=== PATIENT | female | born 1970 | race Caucasian/White ===

== ENCOUNTER → 2020-01-07 11:30 | Outpatient (BNVA) | payer MEDICAID, SELFPAY | PROVIDERS: Visit Provider Nurse Practitioner | DX: R50.9 Fever, unspecified (principal); B34.9 Viral infection, unspecified; J44.9 Chronic obstructive pulmonary disease, unspecified; Z20.828 Contact with and (suspected) exposure to other viral communicable diseases | CPT/HCPCS: 87635 ==

== ENCOUNTER → 2020-10-13 08:50 | Outpatient (BNVA) | payer MEDICAID, SELFPAY | PROVIDERS: Visit Provider Psychiatry & Neurology Psychiatry | DX: F43.12 Post-traumatic stress disorder, chronic (principal); F33.2 Major depressive disorder, recurrent severe without psychotic features; F41.1 Generalized anxiety disorder; F10.21 Alcohol dependence, in remission; F12.20 Cannabis dependence, uncomplicated; F17.200 Nicotine dependence, unspecified, uncomplicated | CPT/HCPCS: 99204 ==

== ENCOUNTER 2021-01-31 09:53 | Outpatient (CLI) | payer MEDICAID, SELFPAY ==
--- NOTE | 2021-01-31 09:56 | NM_ITS ---
WS: [id number] NUCLEAR MEDICINE HIDA SCAN CLINICAL INFORMATION: ABDOMINAL BLOATING TECHNIQUE: Following intravenous administration of 7.8 mCi of technetium 99m mebrofenin, images of th e abdomen were obtained over the course of 60 minutes. Next, gallbladder ejection fraction was determ ined by obtaining preprandial and one-hour postprandial images of the gallbladder following oral celestina stion of Ensure. COMPARISON: None. FINDINGS: Normal hepatic uptake at 5 minutes. Common bile duct visualized by 10 to 15 minutes. Normal common bi le duct and small bowel activity. Gallbladder is visualized by 20 minutes. No evidence of acute cholecystitis. Gallbladder ejection fra ction 77% within normal limits. No evidence of chronic cholecystitis. NM/NM hepatobiliary w phar* [id number] IMPRESSION: 1. No evidence of acute or chronic cholecystitis. 2. Normal gallbladder ejection fraction 77%.
== END 2021-01-31 09:54 | disposition home or self-care (01) ==
LOC: NM 09:54
PROVIDERS: PCP Family Medicine; Visit Provider Family Medicine
DX: R14.0 Abdominal distension (gaseous) (principal); K83.8 Other specified diseases of biliary tract
CPT/HCPCS: 78227; A9537

== ENCOUNTER → 2021-12-14 11:47 | Outpatient (BNVA) | payer MEDICAID, SELFPAY | PROVIDERS: PCP Family Medicine; Visit Provider Family Medicine | DX: M25.512 Pain in left shoulder (principal) | CPT/HCPCS: 73030 ==

== ENCOUNTER → 2023-06-07 15:58 | Outpatient (BNVA) | payer MEDICAID, SELFPAY | PROVIDERS: PCP Family Medicine; Visit Provider Nurse Practitioner | DX: R05.9 Cough, unspecified (principal); M79.642 Pain in left hand | CPT/HCPCS: 87426 ==

== ENCOUNTER 2024-05-25 15:38 | Emergency (ER) | payer MEDICAID, SELFPAY ==
[2024-05-25] VITALS (11 sets, daily range): BP systolic 144–193; BP diastolic 94–152; PULSE 59–84; RESP 15–20; TEMP 36.7; O2SAT 94–98; BMI 30.9
--- NOTE | 2024-05-25 15:42 | XRR_ITS ---
PROCEDURE INFORMATION: Exam: XR Chest Exam date and time: 05/25/2024 3:47 PM Age: 53 years old Clinical indication: Pain; Chest pressure; Additional info: Chest pain TECHNIQUE: Imaging protocol: Radiologic exam of the chest. Views: 1 view. COMPARISON: CR XR chest 1V [id number] 06/03/2017 10:18 PM FINDINGS: Lungs: Lungs are clear bilaterally. Pleural spaces: No pleural effusion. No pneumothorax. Heart/Mediastinum: The cardiac silhouette and mediastinal contours are unremarkable. Bones/joints: . Patient has had a previous right humeral fracture repair. There has been interval removal of the majority of the surgical hardware with a residual partial screw in the right humeral head. Bones are diffusely osteopenic. Degenerative changes in the spine and shoulders. XR/XR chest 1V portable [id number] IMPRESSION: 1. No acute cardiopulmonary process. 2. Patient has had a previous right humeral fracture repair. There has been interval removal of the majority of the surgical hardware with a residual partial screw in the right humeral head. 3. Incidental/nonacute findings are listed in the report.
--- NOTE | 2024-05-25 15:44 | ECG_ITS ---
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 Measurements Intervals Howard Rate: 67 P: 49 WI: 136 QRS: 54 QRSD: 88 T: 61 QT: 387 QTc: 410 Interpretive Statements SINUS RHYTHM WITH MARKED SINUS ARRHYTHMIA Compared to ECG 06/03/2017 22:32:42 No significant changes Electronically Signed On 05-25-2024 20:38:03 CDT by Obdulia Muhammad M.D. [id number]
--- NOTE | 2024-05-25 15:53 | ED_ITS ---
HPI - SOB/Dyspnea 2 General: Chief Complaint: Shortness of Breath/Dyspnea Stated Complaint: chest pain; SOB Time Seen by Provider: 05/25/24 15:39 History of Present Illness: HPI Narrative: 53-year-old female with a history of tob acco dependence, COPD, fatty history of alcohol abuse who presents to the emergency room with central chest and epigastric pain. She has had some nausea and vomiting. Says it hurts to breathe. This is on both sides of her chest. Symptoms are worse today. She is supposed to see her doctor this week at some point but could not make it. She says symptoms have been off and on for about a month now. She has had a cough productive of sputum. No fevers. Altered mental status. Related Data Home Medications Medication Instructions Recorded Confirmed buspirone 5 mg tablet 5 mg PO BID 09/03/20 12/14/21 cetirizine 10 mg capsule (Zyrtec) 10 mg PO DAILY 09/03/20 12/14/21 hydrocodone 5 mg-acetaminophen 325 1 tab PO BID PRN 09/03/20 12/14/21 mg tablet (Lorcet (hydrocodone)) albuterol sulfate 2.5 mg/3 mL 2.5 mg inhalation Q6H 12/14/21 12/14/21 (0.083 %) solution for nebulization omeprazole 40 mg capsule,delayed ea PO 12/14/21 12/14/21 release ibuprofen 800 mg tablet 800 mg PO BID 06/07/23 06/07/23 tiotropium bromide 18 mcg capsule 1 cap inhalation DAILY 06/07/23 06/07/23 with inhalation device (Spiriva with HandiHaler) Previous Rx's Medication Instructions Recorded albuterol sulfate 90 mcg/actuation 2 puff inhalation Q6H PRN 06/07/23 aerosol inhaler shortness of breath or wheezing #8.5 grams doxycycline hyclate 100 mg capsule 100 mg PO BID #14 caps 06/07/23 fluconazole 150 mg tablet 150 mg PO Q3D 2 doses #2 tabs 06/07/23 (Diflucan) dexamethasone 6 mg tablet 6 mg PO DAILY 5 days #5 tabs 05/25/24 doxycycline hyclate 100 mg capsule 100 mg PO BID 7 days #14 caps 05/25/24 hydrocodone 5 mg-acetaminophen 325 1 tab PO Q8H PRN pain #14 tabs 25/24 mg tablet Allergies Allergy/AdvReac Type Severity Reaction Status Date / Time baclofen Allergy Severe gives her Verified 06/07/23 15:46 nightmares levofloxacin [From Levaquin] Allergy Severe Anaphylaxis Verified 06/07/23 15:46 amoxicillin Allergy unknown Verified 06/07/23 15:46 azithromycin [From Zithromax] Allergy unknown Verified 06/07/23 15:46 cephalexin [From Keflex] Allergy unknown Verified 06/07/23 15:46 ciprofloxacin [From Cipro] Allergy unknown Verified 06/07/23 15:46 erythromycin base Allergy unknown Verified 06/07/23 15:46 Penicillins Allergy unknown Verified 06/07/23 15:46 prednisone Allergy ADR-Itching Unverified 06/07/23 15:46 Sulfa (Sulfonamide Allergy unknown Verified 06/07/23 15:46 Antibiotics) Review of Systems 2 Narrative: Constitutional symptoms: Negative except as documented in HPI. Skin symptoms: Negative except as documented in HPI. Eye symptoms: Negative except as documented in HPI. ENMT symptoms: Negative except as documented in HPI. Respiratory symptoms: Negative except as documented in HPI. Cardiovascular symptoms: Negative except as documented in HPI. Gastrointestinal symptoms: Negative except as documented in HPI. Genitourinary symptoms: Negative except as documented in HPI. Musculoskeletal symptoms: Negative except as documented in HPI. Neurologic symptoms: Negative except as documented in HPI. Psychiatric symptoms: Negative except as documented in HPI. Endocrine symptoms: Negative except as documented in HPI. PFSH ED 2 PFSH: Medical History Alcohol abuse COPD (chronic obstructive pulmonary disease) Depression Fibromyalgia Generalized anxiety disorder GERD (gastroesophageal reflux disease) Surgical History Status post hysterectomy Social History Smoking and tobacco/nicotine status: current every day tobacco/nicotine user cigarettes Packs smoked per day: 1.5 Years cigarettes smoked: 37 Quit status (tobacco/nicotine): has tried quititng Number of times tried to quit tobacco: 10 Second hand smoke exposure: No Alcohol intake: current Alcohol intake frequency: 3 or more drinks per day Substance/Drug Use: never Current gender identity: Female Physical Exam 2 Narrative: EXAM NARRATIVE: General: Alert, no acute distress. Skin: Warm, dry. Head: Normocephalic, atraumatic. Neck: Supple, trachea midline. Eye: Extraocular movements are intact. Ears, nose, mouth and throat: mucosa moist. Cardiovascular: Regular, Normal peripheral perfusion. Respiratory: Lungs are clear to auscultation, respirations are non-labored, breath sounds are equal, Symmetrical chest wall expansion. Gastrointestinal: Soft, Nontender, Non distended Musculoskeletal: Normal ROM, no deformity. Neurological: Alert and oriented, No focal neurological deficit observed. Psychiatric: Cooperative, appropriate mood & affect. Course 2 Vital Signs: Vital signs: Vital Signs Temperature 98.1 F 05/25/24 15:39 Pulse Rate 81 05/25/24 18:12 Respiratory Rate 16 05/25/24 18:06 Blood Pressure 162/94 05/25/24 16:30 Pulse Oximetry 98 05/25/24 18:06 Oxygen Delivery Me thod Room Air 05/25/24 18:06 MDM - SOB/Dyspnea Medical Decision Making Differential diagnosis for patient with shortness of breath includes but is not limited to and based on the above HPI, review of systems and physical exam: Pneumonia. Bronchitis. Asthma or COPD with acute exacerbation. Acute coronary syndrome / IA. Pulmonary embolism. Anxiety. Congestive heart failure. Viral infections including influenza and Covid-19. Atrial fibrillation. Anxiety. Pleural effusion. Pneumothorax. Workup: Lab work, chest X-ray and EKG ordered to evaluate, rule in and rule out above pathologies EKG: Time 1603. Rate 67. Normal sinus rhythm, No ST-T changes, no ectopy, normal MI & QRS intervals, This was reviewed and interpreted by myself the ER physician at 1605 Repeat EKG: Normal sinus rhythm, No ST-T changes, no ectopy, normal MI & QRS intervals, This was reviewed and interpreted by myself the ER physician at 1750 Lab Review: Laboratory results were reviewed and interpreted by myself the emergency room physician. No leukocytosis. Mild polycythemia at 17,000. Platelets normal at 241. BUN and creatinine are normal at 12 and 0.6. Lipase is minimally elevated at 95. Chest x-ray: No acute process. No infiltrate. No pneumothorax. This was reviewed and interpreted by myself the ER physician. CT of the chest abdomen pelvis with contrast: No PE. No cardiopulmonary process. Findings listed below which have discussed with gastroenterology and this needs followed up as an outpatient. She has chronic pancreatitis and probably has some pseudocysts but is relatively symptomatic and tolerating fluids today. Consultation. I spoke with Dr. Biswas at [facility] in [place]. He is computer help desk specialist. I discussed the findings. He agrees that if the patient is tolerating fluids and has minimized pain that this can be followed up as an outpatient. He recommends alcohol cessation. I reviewed the patient's medical record. Reexamination: Patient says she feels much better. No further abdominal pain. She is not requiring oxygen. No increased work of breathing. No altered mental status. No focal motor deficits. Assessment and plan: COPD with acute exacerbation Tobacco dependence Alcohol abuse Chronic pancreatitis Pancreatic pseudocyst ?Fluids and pain medications in the emergency room. Also IV Solu-Medrol, IV doxycycline and updrafts. - Discharged home - Discussed findings and plan with patient. Answered any questions. - All laboratory values were reviewed and interpreted personally by myself, the ER physician - All imaging was reviewed and interpreted personally by myself, the ER physician. - Evaluation and treatment of this problem were appropriate in the emergency setting Lab Data 05/25/24 15:50 05/25/24 15:50 Labs/Radiology: Radiology Impressions Chest X-Ray 05/25/24 15:42 IMPRESSION: 1. No acute cardiopulmonary process. 2. Patient has had a previous right humeral fracture repair. There has been interval removal of the majority of the surgical hardware with a residual partial screw in the right humeral head. 3. Incidental/nonacute findings are listed in the report. Chest/Abdomen/Pelvis CT 05/25/24 16:29 IMPRESSION: 1. No evidence for pulmonary embolism. 2. No acute cardiopulmonary process. 3. Incidental/nonacute findings are listed in the report. IMPRESSION: 1. Interval development on a curvilinear soft tissue density focus with mild associated inflammation between the pancreatic head and the duodenal bulb and 2nd portion of the duodenum. Findings raise suspicion for groove pancreatitis. The differential diagnosis also includes a primary pancreatic or duodenal mass. Further evaluation with MRI of the pancreas/MRCP or ERCP with endoscopic ultrasound is recommended. 2. Interval development of calcifications in the head of the pancreas, suspicious for sequela of chronic pancreatitis interval development of mild pancreatic ductal dilatation and biliary ductal dilatation. Subtle area of relative decreased density in the uncinate process below the area of calcification. While this also may be secondary to chronic pancreatitis, there is cutoff of the pancreatic and biliary ducts in the uncinate process of the pancreas in this area, it is uncertain whether this may be due to the calcification or secondary to an occult mass. No pancreatic atrophy. Again, further evaluation with MRI of the pancreas/MRCP or ERCP with endoscopic ultrasound is recommended. 3. Interval development of 2 cystic foci in the head of the pancreas, question if these may represent small pancreatic pseudocysts. 4. Bilateral nonobstructing renal stones. 5. Sigmoid diverticulosis. No evidence for diverticulitis. 6. Incidental/nonacute findings are listed in the report. ADDENDUM: 05/25/24 1809 ZEE Clark stated on 05/25/2024 at 6:07 PM CDT that a copy of the report was received and there were no questions. Abdomen Ultrasound 05/25/24 18:14 IMPRESSION: 1. Pancreas is partially visualized 1.7 x 1.3 x 1.4 cm cystic focus in the head of the pancreas that corresponds to the more superior cystic finding on the prior CT scan and may represent a pancreatic pseudocyst. The 2nd cystic focus noted on the prior CT is not visualized. 2. Visualized common bile duct is dilated measuring 1.1 cm. The distal common bile duct is not visualized. 3. Artifact from Doppler flow in the right kidney corresponding to the right kidney stones noted on the prior CT. Laboratory Results WBC 8.14 10^3/uL (3.29-11.43) 05/25/24 15:50 RBC 5.39 10^6/uL (3.85-5.65) 05/25/24 15:50 Hgb 17.10 g/dL (11.27-16.99) H 05/25/24 15:50 Hct 52.3 % (36-47) H 05/25/24 15:50 MCV 97.0 fl (85-98) 05/25/24 15:50 MCH 31.7 pg (27-33) 05/25/24 15:50 MCHC 32.7 g/dL (30-55) 05/25/24 15:50 RDW 15.3 % (12.1-15.1) H 05/25/24 15:50 Plt Count 241 10^3/cmm (157-399) 05/25/24 15:50 MPV 9.0 fL (7.4-10.4) 05/25/24 15:50 Neut % (Auto) 76.2 % 05/25/24 15:50 Lymph % (Auto) 14.0 % 05/25/24 15:50 [place] % (Auto) 8.0 % 05/25/24 15:50 Eos % (Auto) 0.9 % 05/25/24 15:50 Baso % (Auto) 0.5 % 05/25/24 15:50 Neut # (Auto) 6.21 10^3/uL (1.8-7.7) 05/25/24 15:50 Lymph # (Auto) 1.1 10^3/uL (0.8-4.8) 05/25/24 15:50 [place] # (Auto) 0.7 10^3/uL (0.2-0.9) 05/25/24 15:50 Eos # (Auto) 0.1 10^3/uL (0.0-0.8) 05/25/24 15:50 Baso # (Auto) 0.0 10^3/uL (0.0-0.1) 05/25/24 15:50 Nucleated RBC % (auto) 0 % 05/25/24 15:50 Nucleated RBCs # 0.0 /100WBC 05/25/24 15:50 Sodium 139 mmol/L (136-145) 05/25/24 15:50 Potassium 4.0 mmol/L (3.5-5.1) 05/25/24 15:50 Chloride 103 mmol/L (98-107) 05/25/24 15:50 Carbon Dioxide 23 mmol/L (22-29) 05/25/24 15:50 Anion Gap 17.0 (5-19) 05/25/24 15:50 BUN 12 mg/dL (6-20) 05/25/24 15:50 Creatinine 0.6 mg/dL (0.5-0.9) 05/25/24 15:50 GFR Calculation 104.6 mL/min (90-130) 05/25/24 15:50 Glucose 128 mg/dL (65-115) H 05/25/24 15:50 Calculated Osmolality 289 mOsm/kg (285-295) 05/25/24 15:50 Lactic Acid 0.8 mmol/L (0.5-2.2) 05/25/24 15:50 Calcium 9.5 mg/dL (8.5-10.5) 05/25/24 15:50 Total Bilirubin 0.8 mg/dL (0.15-1.2) 05/25/24 15:50 AST 19 U/L (0-32) 05/25/24 15:50 ALT 8 U/L (0-33) 05/25/24 15:50 Alkaline Phosphatase 103 U/L (35-105) 05/25/24 15:50 Troponin T Baseline < 6 ng/L (0-10) 05/25/24 15:50 Troponin T 120 Minute 6.00 ng/L (0-10) 05/25/24 17:58 Delta Troponin T 0.96403 ABS# (0-10) 05/25/24 17:58 C-Reactive Protein 3.0 mg/L (0.0-4.9) 05/25/24 15:50 Total Protein 7.0 g/dL (6.6-8.7) 05/25/24 15:50 Albumin 4.2 g/dL (3.5-5.2) 05/25/24 15:50 Globulin 2.8 g/dL (1.3-4.6) 05/25/24 15:50 Lipase 95 U/L (13-60) H 05/25/24 15:50 SARS-CoV-2 Ag (Rapid) negative (Negative) 05/25/24 16:44 All radiology interpretation(s) finalized by discharge Discharge Plan Discharge Patient Disposition: Home Clinical Impression: COPD with acute exacerbation, Tobacco dependence, Alcohol abuse, Chronic pancreatitis Condition: Stable Prescriptions: New doxycycline hyclate 100 mg capsule 100 mg PO BID 7 Days Qty: 14 0RF dexamethasone 6 mg tablet 6 mg PO DAILY 5 Days Qty: 5 0RF hydrocodone-acetaminophen 5-325 mg tablet 1 tab PO Q8H PRN (Reason: pain) Qty: 14 0RF Rx Instructions: Take 1/2 to 1 tab every 8 hours as needed for pain No Action buspirone 5 mg tablet 5 mg PO BID hydrocodone-acetaminophen [Lorcet (hydrocodone)] 5-325 mg tablet 1 tab PO BID PRN Zyrtec 10 mg capsule 10 mg PO DAILY albuterol sulfate 2.5 mg /3 mL (0.083 %) solution for nebulization 2.5 mg inhalation Q6H omeprazole 40 mg capsule,delayed release(DR/EC) PO ibuprofen 800 mg tablet 800 mg PO BID tiotropium bromide [Spiriva with HandiHaler] 18 mcg capsule, w/inhalation device 1 cap inhalation DAILY doxycycline hyclate 100 mg capsule 100 mg PO BID Qty: 14 0RF albuterol sulfate 90 mcg/actuation HFA aerosol inhaler 2 puff inhalation Q6H PRN (Reason: shortness of breath or wheezing) Qty: 8.5 0RF fluconazole [Diflucan] 150 mg tablet 150 mg PO Q3D Qty: 2 0RF Discharge Orders: Discharge ED (Routine); Ordered 05/25/24 Ordered By: Zee Turcios Referrals: Gallo Stauffer [Primary Care Provider] - Discharge Diet: Advance as tolerated Discharge Activity: Increase activity as tolerated Patient Instructions: COPD (Chronic Obstructive Pulmonary Disease) (ED) Activity Restrictions/Additional Instructions: You have abnormal findings on your CT they are concerned your bile duct and your pancreas. This needs follow-up with your primary doctor and likely a procedure called an MRCP and/or follow-up with gastroenterology. This needs to be done promptly. Discussed this with the appointment you have with your primary care this week. You must stop drinking alcohol For the next few days have a clear liquid diet and no solids this will help if you are having some mild pancreatitis type symptoms. Thank you for choosing [facility] for your healthcare needs today. Please realize this is an emergency room and that we are providing you with a medical screening exam and this may not be complete and all inclusive of all the testing and or work up that you may need to determine your ailment or severity of your illness. You have been screened and evaluated and felt safe for discharge. Health conditions do change or evolve sometimes and as such it is important that you follow up with your Primary Doctor to be re checked, 3-5 days is a general good time frame for follow up. 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
[2024-05-25 15:57] LABS: Basophils % 0.5 %; Eosinophils # 0.1 10^3/uL (0.0-0.8); Eosinophils % 0.9 %; Hematocrit 52.3 % (36-47); Lymphocytes # 1.1 10^3/uL (0.8-4.8); Mean Corpuscular HGB Conc 32.7 g/dL (30-55); Mean Corpuscular Hemoglobin 31.7 pg (27-33); Monocytes # 0.7 10^3/uL (0.2-0.9); Neutrophils # 6.21 10^3/uL (1.8-7.7); Neutrophils % 76.2 %; Nucleated Red Blood Cells % 0 %; Platelet Count 241 10^3/cmm (157-399); Red Blood Count 5.39 10^6/uL (3.85-5.65); Red Cell Distribution Width 15.3 % (12.1-15.1); White Blood Count 8.14 10^3/uL (3.29-11.43)
[2024-05-25 16:20] LABS: Troponin(5th) Baseline < 6 ng/L (0-10)
[2024-05-25 16:23] LABS: Alanine Aminotransferase 8 U/L (0-33); Albumin Level 4.2 g/dL (3.5-5.2); Alkaline Phosphatase 103 U/L (35-105); Aspartate Amino Transferase 19 U/L (0-32); Blood Urea Nitrogen 12 mg/dL (6-20); Calcium 9.5 mg/dL (8.5-10.5); Carbon Dioxide 23 mmol/L (22-29); Chloride 103 mmol/L (98-107); Globulin 2.8 g/dL (1.3-4.6); Glomerular Filtration Rate 104.6 mL/min (90-130); Glucose 128 mg/dL (65-115); Lipase 95 U/L (13-60); Osmolality Calculated 289 mOsm/kg (285-295); Sodium 139 mmol/L (136-145); Total Bilirubin 0.8 mg/dL (0.15-1.2)
[2024-05-25 16:24] LABS: Lactic Sepsis W/Reflex 0.8 mmol/L (0.5-2.2)
--- NOTE | 2024-05-25 16:29 | CTR_ITS ---
PROCEDURE INFORMATION: Exam: CT Chest With Contrast; Diagnostic Exam date and time: 05/25/2024 5:14 PM Age: 53 years old Clinical indication: Abdominal pain; Epigastric; Chest pressure; Additional info: Chest pain, epigastric pain TECHNIQUE: Imaging protocol: Diagnostic computed tomography of the chest with contrast. Sagittal and coronal reformatted images were created and reviewed. Radiation optimization: All CT scans at this facility use at least one of these dose optimization techniques: automated exposure control; mA and/or kV adjustment per patient size (includes targeted exams where dose is matched to clinical indication); or iterative reconstruction. Contrast material: OMNI 350; Contrast volume: 100 ml; Contrast route: INTRAVENOUS (IV); COMPARISON: CR (CHEST, ) 05/25/2024 3:47 PM RADIATION DOSE METRICS: Total DLP (mGy-cm): 1204.28 FINDINGS: Trachea: Tracheobronchial structures are patent. Lungs: Lungs are clear bilaterally. No pulmonary parenchymal nodules or masses. Pleural spaces: No pneumothorax. No pleural effusion. Heart: No cardiomegaly. No pericardial effusion. Esophagus: The esophagus is unremarkable. Mediastinal space: No mediastinal hematoma. No pneumomediastinum. Lymph nodes: No lymphadenopathy. Vasculature: Mild atherosclerotic changes in the visualized arteries. No evidence for aortic aneurysm or aortic dissection. No filling defects in the pulmonary arteries to suggest pulmonary embolism. Bones/joints: Deformity of the proximal right humerus from remote trauma. There is a partial screw seen in the right humeral head. Remainder of the surgical hardware has been removed. Degenerative changes in the spine and shoulders. No lytic or sclerotic bony lesions. Soft tissues: No acute abnormality in the extrathoracic soft tissues. PROCEDURE INFORMATION: Exam: CT Abdomen And Pelvis With Contrast Exam date and time: 05/25/2024 5:14 PM Age: 53 years old Clinical indication: Abdominal pain; Epigastric; Chest pressure; Additional info: Chest pain, epigastric pain TECHNIQUE: Imaging protocol: Computed tomography of the abdomen and pelvis with contrast. Radiation optimization: All CT scans at this facility use at least one of these dose optimization techniques: automated exposure control; mA and/or kV adjustment per patient size (includes targeted exams where dose is matched to clinical indication); or iterative reconstruction. Contrast material: OMNI 350; Contrast volume: 100 ml; Contrast route: INTRAVENOUS (IV); COMPARISON: 1. [place] hepatobiliary w phar* [id number] 01/31/2021 9:[address] Abdomen/Pelvis w IV* [id number] 03/11/2016 6:26 PM RADIATION DOSE METRICS: Total DLP (mGy-cm): 1204.28 FINDINGS: Liver: The liver is unremarkable. Gallbladder and biliary ducts: The gallbladder is unremarkable. No gallbladder wall thickening. Also see under pancreas . Pancreas: Interval development of curvilinear soft tissue density focus with mild associated inflammation between the pancreatic head and the duodenal bulb and 2nd portion of the duodenum. Interval development of 2 cystic foci in the head of the pancreas the more superior focus abuts the duodenal groove and measures 1.1 x 1.1 cm (series 7, image 27). The more inferior focus is at the anterior pancreatic had and measures 1.7 x 1.3 cm (series 7, image 28). Interval development of calcifications in the head of the pancreas, suspicious for sequela of chronic pancreatitis. development of mild pancreatic ductal dilatation measuring up to 5.8 mm and biliary ductal dilatation with common bile duct measuring up to 1.5 cm (series 7, image 22). Subtle area of relative decreased density in the uncinate process below the area of calcification measuring 2.6 x 2.8 cm (series 7, image 27). While this also may be secondary to chronic pancreatitis, there is cutoff of the pancreatic and biliary ducts in the uncinate process of the pancreas in this area, it is uncertain whether this may be due to the calcification or secondary to an occult mass. No pancreatic atrophy. Spleen: The spleen is unremarkable. Adrenal glands: The right and left adrenal glands are unremarkable. Kidneys and ureters: Nonobstructing stones in both right and left kidneys. The largest on the right measures 4.7 mm, the largest on the left measures 4.9 mm (series 7, images 29 and 32). The right and left ureters are unremarkable. Stomach and bowel: Numerous diverticula in the sigmoid colon. No evidence for diverticulitis. No acute abnormality in the stomach. No acute abnormality in the small bowel. Appendix: The appendix is visualized and is unremarkable. No findings to suggest acute appendicitis. Intraperitoneal space: No free intraperitoneal air. No ascites. No loculated fluid collections to suggest an abscess. Vasculature: Stable moderate atherosclerotic calcifications in the visualized arteries. No evidence for aortic aneurysm or aortic dissection. Hepatic veins, portal veins, splenic vein, and SMV are patent. Lymph nodes: No lymphadenopathy. Urinary bladder: The bladder is unremarkable for the degree of distension. Reproductive: Stable changes consistent with a previous hysterectomy. Stable changes consistent with a previous bilateral oophorectomy. Bones/joints: Insert bilateral hip arthroplastyMultilevel degenerative changes of varying severity in the visualized spine. No lytic or sclerotic bony lesions. Soft tissues: No acute abnormality in the extra-abdominal soft tissues. CT/CT chest abdpel w/*[id number] IMPRESSION: 1. No evidence for pulmonary embolism. 2. No acute cardiopulmonary process. 3. Incidental/nonacute findings are listed in the report. IMPRESSION: 1. Interval development on a curvilinear soft tissue density focus with mild associated inflammation between the pancreatic head and the duodenal bulb and 2nd portion of the duodenum. Findings raise suspicion for groove pancreatitis. The differential diagnosis also includes a primary pancreatic or duodenal mass. Further evaluation with MRI of the pancreas/MRCP or ERCP with endoscopic ultrasound is recommended. 2. Interval development of calcifications in the head of the pancreas, suspicious for sequela of chronic pancreatitis interval development of mild pancreatic ductal dilatation and biliary ductal dilatation. Subtle area of relative decreased density in the uncinate process below the area of calcification. While this also may be secondary to chronic pancreatitis, there is cutoff of the pancreatic and biliary ducts in the uncinate process of the pancreas in this area, it is uncertain whether this may be due to the calcification or secondary to an occult mass. No pancreatic atrophy. Again, further evaluation with MRI of the pancreas/MRCP or ERCP with endoscopic ultrasound is recommended. 3. Interval development of 2 cystic foci in the head of the pancreas, question if these may represent small pancreatic pseudocysts. 4. Bilateral nonobstructing renal stones. 5. Sigmoid diverticulosis. No evidence for diverticulitis. 6. Incidental/nonacute findings are listed in the report.
[2024-05-25 17:14] LABS: SARS Covid-2 Antigen negative (Negative)
[2024-05-25] MEDS: iohexol 350 mg/mL 500 mL Btl (per mL) IV (17:17)
--- NOTE | 2024-05-25 17:44 | ECG_ITS ---
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 Measurements Intervals [place] Rate: 59 P: -6 OR: 131 QRS: 62 QRSD: 94 T: 65 QT: 413 QTc: 412 Interpretive Statements SINUS BRADYCARDIA WITH SINUS ARRHYTHMIA Compared to ECG 05/25/2024 16:03:28 Sinus rhythm no longer present Electronically Signed On 05-25-2024 20:40:05 CDT by Obdulia Muhammad M.D. [id number]
[2024-05-25] MEDS: ipratropium-albuterol 3 mL Neb INHALATION (18:04)
--- NOTE | 2024-05-25 18:14 | USR_ITS ---
PROCEDURE INFORMATION: Exam: US Abdomen, Limited; Right Upper Quadrant Exam date and time: 05/25/2024 6:26 PM Age: 53 years old Clinical indication: Abnormal findings; Abnormal radiologic finding of the abdomen; Radiologic exam and body structure: CT pancreas; Additional info: Gallbladder, liver and pancreas. TECHNIQUE: Imaging protocol: Real time ultrasound of the abdomen with image documentation. Limited exam focused on the right upper quadrant. COMPARISON: CT chest abdpel w/*[id number] 05/25/2024 5:14 PM FINDINGS: Liver: The liver is unremarkable. Gallbladder: The gallbladder is unremarkable. No gallstones or intraluminal sludge. No gallbladder wall thickening. No pericholecystic fluid. Biliary ducts: Visualized common bile duct is dilated measuring 1.1 cm. The distal common bile duct is not visualized. Pancreas: Pancreas is partially visualized. 1.7 x 1.3 x 1.4 cm cystic focus in the head of the pancreas that corresponds to the more superior cystic finding on the prior CT scan and may represent a pancreatic pseudocyst. Right kidney: Artifact from Doppler flow in the right kidney corresponding to the right kidney stones noted on the prior CT. Aorta: Visualized aorta is unremarkable. Inferior vena cava: Visualized IVC is unremarkable. Portal venous: Hepatopetal flow in the portal vein. Intraperitoneal space: No ascites. US/US abdomen limited [id number] IMPRESSION: 1. Pancreas is partially visualized 1.7 x 1.3 x 1.4 cm cystic focus in the head of the pancreas that corresponds to the more superior cystic finding on the prior CT scan and may represent a pancreatic pseudocyst. The 2nd cystic focus noted on the prior CT is not visualized. 2. Visualized common bile duct is dilated measuring 1.1 cm. The distal common bile duct is not visualized. 3. Artifact from Doppler flow in the right kidney corresponding to the right kidney stones noted on the prior CT.
[2024-05-25 18:20] LABS: Troponin 5 2HR Delta 0.00001 ABS# (0-10)
[2024-05-25] MEDS: HYDROcodone-acetaminophen 5-325 mg Tablet 1 TAB PO (18:39)
[2024-05-25] MEDS: methylPREDNISolone sod succ 125 mg/2 mL INJ IVP (18:39)
[2024-05-25] MEDS: famotidine 20 mg/2 mL INJ 40 MG IVP (20:03)
== END 2024-05-25 21:13 | disposition home or self-care (01) ==
PROVIDERS: Emergency Provider Emergency Medicine; PCP Family Medicine
DX: J44.1 Chronic obstructive pulmonary disease with (acute) exacerbation (principal); F10.10 Alcohol abuse, uncomplicated; K86.1 Other chronic pancreatitis; Z11.52 Encounter for screening for COVID-19; J44.9 Chronic obstructive pulmonary disease, unspecified; F17.210 Nicotine dependence, cigarettes, uncomplicated
CPT/HCPCS: 36415; 71045; 71260; 74177; 76705; 80053; 83605; 83690; 84484; 85025; 86140; 87426; 93005; 94640; 96374; 96375; 99285; J2919; J3490; Q9967

== ENCOUNTER 2025-05-04 12:23 | Outpatient (CLI) | payer MEDICAID, SELFPAY ==
[2025-05-04 12:30] VITALS: BMI 29.7
--- NOTE | 2025-05-04 12:34 | ECG_ITS ---
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 Interpretive Statements Lung unchanged pre/post procedure; Intraprocedure shortess of breath; Symptoms resoled by discharge PROCEDURE: At the baseline, the patient's blood pressure was 136/96 with a heart rate of 86. The baseline electrocardiogram showed normal sinus rhythm with normal ST-Ts.. The patient exercised for 3 minutes and 28 seconds on a standard Ankit protocol. Patient attained a maximum heart rate of 156 beats per minute(93% of the maximum predicted heart rate) with a blood pressure at the peak exercise of 197/117 mm Hg. The EKG at the peak exercise revealed no significant changes. Patient did not have any chest pain or any significant cardiac arrhythmias with the exercise During the recovery phase, there were no new changes. Blood pressure at the end of the recovery phase was 175/94 mm Hg with a heart rate of 80 per minute. CONCLUSION: 1. Normal EKG response to treadmill exercise 2. No exercise-induced chest pain or cardiac arrhythmia 3. Impaired exercise tolerance, attained a maximum of 7.0 METs Electronically Signed On 05-12-2025 10:56:07 CDT by Obdulia Muhammad M.D. [id number]
[2025-05-04 13:15] VITALS: BP 175/94; PULSE 80
== END 2025-05-04 12:24 | disposition home or self-care (01) ==
LOC: CDL 12:26
PROVIDERS: PCP Family Medicine; Visit Provider Family Medicine
DX: R06.09 Other forms of dyspnea (principal); I49.8 Other specified cardiac arrhythmias
CPT/HCPCS: 93017

== ENCOUNTER 2025-08-20 17:47 | Emergency (ER) | payer MEDICAID, SELFPAY ==
[2025-08-20 17:49] VITALS: BMI 27.4
--- NOTE | 2025-08-20 17:53 | ECG_ITS ---
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 Measurements Intervals [place] Rate: 61 P: 11 MS: 137 QRS: 53 QRSD: 92 T: 54 QT: 427 QTc: 431 Interpretive Statements SINUS RHYTHM WITH OCCASIONAL SUPRAVENTRICULAR PREMATURE COMPLEXES Compared to ECG 05/25/2024 17:47:54 Sinus bradycardia no longer present Sinus arrhythmia no longer present Electronically Signed On 08-22-2025 14:24:41 PAINTING SUPERVISOR by Obdulia Muhammad M.D. [id number]
--- OUTSIDE RECORDS SUMMARY | 2025-08-20 17:58 | XMS_ITS | Encounter Summary ---
Author Organization [facility] Address [address] [place] [address] Care Team Providers Care Cafe Manager Name Role Phone Gallo Stauffer MD Primary Care Provider [phone] Reason for Visit * Reason Onset Date Comments Lab Results 08/06/2025 Results 08/06/2025 Encounter Details Date Type Department Care Team (Latest Contact Info) Description 08/06/2025 Results Follow-Up [facility] Family Medicine [address] [address] Gallo Stauffer MD [address] [address] CBC WITH DIFFERENTIAL, COMPREHENSIVE METABOLIC PANEL, HEMOGLOBIN A1C, Additional followed-up results: 6 Social History Tobacco Use Types Packs/Day Years Used Date Smoking Tobacco: Every Day Cigarettes 1.5 41.8 Started: 10/18/1983 Smokeless Tobacco: Never Comments:As of June, the patient says she is cut back to around a pack of cigarettes a day. Alcohol Use Standard Drinks/Week Comments Not Currently 0 (1 standard drink = 0.6 oz pur e alcohol) Feeling Safe Answer Date Recorded Are you in a relationship wi th someone who hurts you emotionally and/or physically? No 06/26/2025 Comments No Sex and Gender Information Value Date Recorded Sex Assigned at Not on file Legal Sex Female 10:02 AM LOCOMOTIVE ENGINEER DIESEL Gender Identity Not on file Sexual Orientation Not on file documented as of this encounter Miscellaneous Notes * Telephone Encounter - Karyn Mane RN - 08/18/2025 3:13 PM LOCOMOTIVE ENGINEER DIESEL 08/18/2025 3:13 PM Called and notified patient of results. Voiced understanding. She questioned if she is suppose to get the testing done and then see cardiology. Nurse reviewed referral notes and advised per notes she is scheduled for 08-31-25, she states that is when she is having all the testing done, so clarification is needed. Message sent. Karyn BECERRIL MOTIVE ENGINEER DIESEL * Telephone Encounter - Karyn Mane RN - 08/18/2025 3:10 PM LOCOMOTIVE ENGINEER DIESEL ----- Message from Johanny Mosquera sent at 08/18/2025 2:51 PM LOCOMOTIVE ENGINEER DIESEL ----- Alpha gal panel is negative. Allergy panel for food and tree nuts shows no allergens. Johanny Mosquera NP assisting Dr. Stauffer ----- Message ----- From: David Moffett [facility]coming [facility] Results Sent: 08/06/2025 5:12 AM LOCOMOTIVE ENGINEER DIESEL To: Gallo Stauffer MD MOTIVE ENGINEER DIESEL * Result Encounter Note - Johanny Mosquera FNP - 08/18/2025 2:51 PM LOCOMOTIVE ENGINEER DIESEL Alpha gal panel is negative. Allergy panel for food and tree nuts shows no allergens. Johanny Mosquera NP assisting Dr. Stauffer MOTIVE ENGINEER DIESEL * Telephone Encounter - Johanny Ordaz RN - 08/06/2025 1:28 PM LOCOMOTIVE ENGINEER DIESEL 08/06/2025 1:28 PM Called and notified patient of results. Voiced understanding. Johanny BECERRIL MOTIVE ENGINEER DIESEL * Telephone Encounter - Johanny Ordaz RN - 08/06/2025 1:28 PM LOCOMOTIVE ENGINEER DIESEL ----- Message from Dr. Gallo Stauffer sent at 08/06/2025 12:19 PM LOCOMOTIVE ENGINEER DIESEL ----- Urinalysis is clear, blood count is stable, liver and kidney function looks good, electrolytes lookgood, pancreas marker is normal, thyroid normal, A1c negative for diabetes, inflammatory marker negative, await additional testing which includes stool studies, alpha gal testing and CT scans, heart testing ----- Message ----- From: David Moffett [facility] Results Sent: 08/06/2025 5:12 AM LOCOMOTIVE ENGINEER DIESEL To: Gallo Stauffer MD MOTIVE ENGINEER DIESEL documented in this encounter Plan of Treatment Upcoming Encounters Date Type Department Care Team (Late st Contact Info) Description 08/31/2025 10:30 AM LOCOMOTIVE ENGINEER DIESEL Appointment [facility] CT Scan [place] [address] [place] [phone] Gallo Stauffer MD [address] [place] [address] 08/31/2025 11:15 AM LOCOMOTIVE ENGINEER DIESEL Appointment [facility] CT Scan [place] [address] [place] [address] Gallo Stauffer MD [address] [place] [phone] 08/31/2025 12:00 PM LOCOMOTIVE ENGINEER DIESEL Appointment [facility] Respiratory Therapy Services [place] [address] [facility] [address] [place] [address] Gallo Stauffer MD [address] [place] [address] 11/04/2025 2:20 PM LOCOMOTIVE ENGINEER DIESEL Office Visit [facility] Family Medicine [place] [address] [place] [address] Gallo Stauffer MD [address] [place] [address] documented as of this encounter Visit Diagnoses Not on filedocumented in this encounter Care Teams Cafe Manager Relationship Specialty Start Date End Date Gallo Stauffer MD [address] [facility] [address] [place] [address] PCP - General Family Practice 03/13/17 documented as of this encounter
--- OUTSIDE RECORDS SUMMARY | 2025-08-20 17:58 | XMS_ITS | Encounter Summary ---
Author Organization [facility] Address [address] [place] [address] Care Team Providers Care Building Admin Name Role Phone Gallo Stauffer MD Primary Care Provider [phone] Reason for Visit * Reason Comments Results Encounter Details Date Type Department Care Team (Late st Contact Info) Description 08/06/2025 Telephone [facility] [address] [address] Gallo Stauffer MD [address] [address] Results Social History Tobacco Use Types Packs/Day Years [...] on file Legal Sex Female 10:02 AM DIRECTOR OF TRAINING Gender Identity Not on file Sexual Orientation Not on file documented as of this encounter Miscellaneous Notes * Telephone Encounter - Octavia Flynn - 08/06/2025 11:41 AM CST Copied from [facility] #[id number]. Topic: CPA Information Request - Results >> Aug 06, 2025 11:33 AM Octavia Nixon wrote: Caller is requesting information about results from an order. ? Caller Name: PT Callback Number: Telephone Information: Test Name: Labs Results Encounter notes are: In chart with clinical documentation - not approved to provide Did clinic leave instructions to transfer call to a specific line/place? No Call Notes: Results were not given and the patient needs a call back CTOR OF TRAINING documented in this encounter Plan of Treatment Upcoming Encounters Date Type Department Care Team (Late st Contact Info) Description 08/31/2025 10:30 AM DIRECTOR OF TRAINING Appointment [facility] CT Scan [place] [address] [place] [phone] Gallo Stauffer MD [address] [place] [address] 08/31/2025 11:15 AM DIRECTOR OF TRAINING Appointment [facility] CT Scan [place] [address] [place] [phone] Gallo Stauffer MD [address] [place] [address] 08/31/2025 12:00 PM DIRECTOR OF TRAINING Appointment [facility] Respiratory Therapy Services [place] [address] [place] [phone] Gallo Stauffer MD [address] [place] [address] 11/04/2025 2:20 PM DIRECTOR OF TRAINING Office Visit [facility] Family Medicine [place] [address] [place] [address] Gallo Stauffer MD [address] [place] [address] documented as of this encounter Visit Diagnoses Not on filedocumented in this encounter Care Teams Building Admin Relationship Specialty Start Date End Date Gallo Stauffer MD [address] [address] PCP - General Family Practice 03/13/17 documented as of this encounter
--- OUTSIDE RECORDS SUMMARY | 2025-08-20 17:58 | XMS_ITS | Clinical Summary ---
Author Organization [facility] Address [facility] [place] [address] Care Team Providers Care Tank Truck Loader Name Role Phone Gallo Stauffer MD Primary Care Provider [phone] Allergies Active Allergy Reactions Criticality Noted Date Comments Baclofen Other (See Comments) High 12/14/2021 Cephalexin Rash Low 07/27/2009 Clindamycin Diarrhea,Nausea and Vomiting Low 03/15/2010 Erythromycin Unknown 07/27/2009 Levofloxacin Anaphylaxis High 12/23/2020 Penicillins Unknown 07/27/2009 Prednisone Swelling Low 07/22/2021 Sulfa (Sulfonamide Antibiotics) Nausea and Vomiting Low 07/27/2009 Medications Miscellaneous Medical Supply Nebulizer supplies 1 Each 022 Active cyclobenzaprine (FLEXERIL) 10 mg tabletIndications :Tear of left rotator cuff, unspecified tear extent, unspecified whether traumatic Take 0.5-1 Tablets (5-10 mg) by mouth 3 times daily as needed for Spasm. 21 Tablet 1 022 Active multivitamin (DAILY-ENEIDA) tablet Take 1 Tablet by mouth daily. Active albuterol (PROVENTIL,VENTOL IN) 2.5 mg /3 mL (0.083 %) Solution for NebulizationIndic ations:COPD with exacerbation ([facility]) Take 3 mL (2.5 mg) by inhalation every 6 hours as needed for Shortness of Breath. 300 mL 11 023 Active triamcinolone acetonide (KENALOG) 0.1 % CreamIndications: Intrinsic eczema Apply to affected area 2 times daily. 80 Gram 2 024 Active potassium chloride (KLOR-CON M10) 10 mEq Extended Release tabletIndications :Localized edema Take 1 Tablet (10 mEq) by mouth daily with breakfast. 30 Tablet 1 024 Active furosemide (LASIX) 20 mg tabletIndications :Localized edema Take 1 Tablet (20 mg) by mouth daily. 30 Tablet 1 024 Active dexAMETHasone (DECADRON) 4 mg tablet TAKE 1 & 1/2 TABLETS BY MOUTH DAILY FOR 5 DAYS 024 Active ondansetron (ZOFRAN ODT) 8 mg Tablet, Rapid DissolveIndicatio ns:Chronic pancreatitis, unspecified pancreatitis type (CMS/HCC) Take 1 Tablet (8 mg) by mouth every 8 hours as needed for Nausea/Emesis. Dissolve 1 tablet on top of tongue then swallow with saliva every 8 hours as needed for nausea or vomiting 30 Tablet 11 024 Active naloxone (NARCAN) 4 mg/spray Lincoln, Non-Aerosol Administer 1 Lincoln (4 mg) in one nostril (alternate nostril with each dose) one time as needed for Respiration (slowed with opioid use). Push plunger to administer. Call 911. May repeat dose, every 2-3 minutes, if the person does not wake up or breathing is not improved. 1 Each 2 024 Active omeprazole (PriLOSEC) 40 mg Capsule, Delayed Release(E.C.) Take 1 Capsule (40 mg) by mouth 2 times daily. 180 Capsule 2 025 Active cetirizine (ZyrTEC) 10 mg tabletIndications :Non-seasonal allergic rhinitis, unspecified trigger Take 1 Tablet (10 mg) by mouth 2 times daily. 200 Tablet 3 025 Active albuterol sulfate (Ventolin HFA) 90 mcg/Actuation inhalerIndication s:Shortness of breath USE 2 INHALATIONS BY MOUTH EVERY 6 HOURS NEEDED FOR SHORTNESS OF BREATH OR WHEEZING 18 Gram 2 025 Active hydrOXYzine HCL (ATARAX) 25 mg tabletIndications :Mild episode of recurrent major depressive disorder,KIMMY (generalized anxiety disorder) Take 1 Tablet (25 mg) by mouth 3 times daily as needed for Itching. 90 Tablet 2 025 Active ibuprofen (MOTRIN) 800 mg tablet Take 1 Tablet (800 mg) by mouth 2 times daily as needed for mild pain 60 Tablet 2 025 Active HYDROcodone-aceta minophen (NORCO) 5-325 mg tabletIndications :Chronic pain syndrome,Fibromya lgia,Status post bilateral hip replacements,Avas cular necrosis of bones of both hips (CMS/HCC),Primary osteoarthritis involving multiple joints,Osteoarthr itis of spine with radiculopathy, lumbar region,Chronic bilateral low back pain with bilateral sciatica Take 1 Tablet by mouth 2 times daily as needed for Pain, Moderate. 60 Tablet 025 Active FLUoxetine (PROzac) 20 mg capsule Take 1 Capsule (20 mg) by mouth daily. 30 Capsule 5 025 Active HYDROcodone-aceta minophen (NORCO) 5-325 mg tabletIndications :Chronic pain syndrome,Fibromya lgia,Status post bilateral hip replacements,Avas cular necrosis of bones of both hips (CMS/HCC),Primary osteoarthritis involving multiple joints,Osteoarthr itis of spine with radiculopathy, lumbar region,Chronic bilateral low back pain with bilateral sciatica Take 1 Tablet by mouth 2 times daily as needed for Pain, Moderate. 60 Tablet 025 2024 Discontinued FLUoxetine (PROzac) 10 mg capsule Take 1 Capsule (10 mg) by mouth daily. Contact the office in 2 to 4 weeks for dose increase if desired 30 Capsule 5 025 2024 Discontinued(R len) Active Problems Problem Noted Date Diagnosed Date Chronic pancreatitis 05/29/2024 Pancreatic pseudocyst 05/29/2024 Other spondylosis with radiculopathy, lumbar reg ion 10/20/2021 Fibromyalgia 04/12/2021 Osteoarthritis of spine with radiculopathy, lumb ar region 04/12/2021 Pneumonia 04/07/2021 Hypomagnesemia 04/07/2021 Non-seasonal allergic rhinitis 04/01/2020 Status post bilateral hip replacements 9 Chest wall pain 12/15/2018 Tachycardia 12/15/2018 Panlobular emphysema 12/15/2018 assisted current use of opiate analgesic 2017 Cutaneous abscess of right upper extremity 05/16 Overview (01/27/2021): Right upper arm. It has been drained, and left open, and it still recurred. Avascular necrosis of bones of both hips 017 Chronic pain syndrome 03/19/2017 Polycythemia 08/28/2012 Overview (01/27/2021): Hgb: 16.8 (8/); 17.7 (/); 15.4 (12/08) Likely due to tobacco abuse. HTN (hypertension), benign 02/13/2012 Mild episode of recurrent major depressive disor zohreh 09/20/2010 Chronic low back pain 12/14/2009 Overview (01/27/2021): Xray Lumbar Spine (02/08): Arthritic changes Alcohol dependence in remission 11/30/2009 Overview (01/27/2021): 1 pint/day (08/11) 1/5th per week (11/11) 1 pint/day (09/09) Tobacco abuse 07/27/2009 Overview (01/27/2021): 1.5-2 ppd (02/10); 2 ppd (02/08); 1.5 ppd (11/11); 1 ppd (06/10) S/P YASMEEN (Total Abdominal Hysterectomy) (12/07) H/O cancer of uterus 07/27/2009 Primary osteoarthritis involving multiple joints PTSD (post-traumatic stress disorder) KIMMY (generalized anxiety disorder) Resolved Problems Problem Noted Date Diagnosed Date Resolved Date Hypokalemia 12/15/2018 10/26/2020 Viral upper respiratory infection 12/15/2018 07/06/2020 Narcotic dependence 09/02/2012 10/26/19 21 Breast CA Screening 07/27/2009 03/19/20 17 Overview (01/26/2021): Mammo: 09/10; 2008 Postmenopausal HRT (hormone replacement therapy) 07/27/2009 12/14/2009 Overview (01/26/2021): Started premarin, 07/09 Encounters Date Type Department Care Team Description 08/19/[address] [address] Glory Guillen FNP 08/06/2025 Results Follow-Up [address] [address] Gallo Stauffer MD CBC WITH DIFFERENTIAL, COMPREHENSIVE METABOLIC PANEL, HEMOGLOBIN A1C, Additional followed-up results: 6 08/06/[address] [place] [address] Gallo Stauffer MD Results 08/04/2025 3:20 PM LIBERAL ARTS TEACHER Office Visit [address] [place] [address] Gallo Stauffer MD Idiopathic chronic pancreatitis (CMS/HCC) (Primary Dx); Dyspnea on exertion; Epigastric abdominal pain; Postprandial epigastric pain; Mesenteric angina; Syncope, unspecified syncope type; Atypical angina; Chronic diarrhea; Screening for diabetes mellitus; Palpitations 08/04/2025 External Device Data STL ABSTRACTION Provider, Abstract 07/30/[address] [place] [address] Gallo Stauffer MD Chronic pain syndrome; Fibromyalgia; Status post bilateral hip replacements; Avascular necrosis of bones of both hips (CMS/HCC); Primary osteoarthritis involving multiple joints; Osteoarthritis of spine with radiculopathy, lumbar region; Chronic bilateral low back pain with bilateral sciatica 07/06/[address] [place] [address] Gallo Stauffer MD Medication Assistance 07/06/[address] [address] Gallo Stauffer MD Chronic pain syndrome; Fibromyalgia; Status post bilateral hip replacements; Avascular necrosis of bones of both hips (CMS/HCC); Primary osteoarthritis involving multiple joints; Osteoarthritis of spine with radiculopathy, lumbar region; Chronic bilateral low back pain with bilateral sciatica 06/26/2025 10:05 AM CDT - 06/26/2025 10:24 AM CDT Surgery [facility] Operating Room [address] [address] Jay Jay Laura MD ESOPHAGOGASTRODUODENOSCOPY WITH BIOPSY 06/26/2025 9:34 AM CDT Anesthesia Event [facility] [address] [address] Mary Beth Gresham, LUCIE 06/26/2025 8:26 AM CDT - 06/26/2025 10:13 AM CDT Hospital Encounter [facility] Pre Post [address] [address] Jay Jay Laura MD GERD (gastroesophageal reflux disease) Discharge Disposition: Home or Self Care 06/25/[address] [address] Gallo Stauffer MD Mild episode of recurrent major depressive disorder; KIMMY (generalized anxiety disorder) 06/16/[address] [address] Gallo Stauffer MD Patient Communication 06/10/2025 12:57 PM CDT - 06/10/2025 11:59 PM CDT Hospital Encounter [facility] [address] [address] Jay Jay Laura MD Discharge Disposition: Home or Self Care 06/10/2025 12:23 PM CDT - 06/10/2025 11:59 PM CDT Hospital Encounter [facility] [address] [address] Gallo Stauffer MD Discharge Disposition: Home or Self Care 06/04/[address] [phone] Gallo Stauffer MD Chronic pain syndrome; Fibromyalgia; Status post bilateral hip replacements; Avascular necrosis of bones of both hips (CMS/HCC); Primary osteoarthritis involving multiple joints; Osteoarthritis of spine with radiculopathy, lumbar region; Chronic bilateral low back pain with bilateral sciatica 06/02/2025 External Device Data STL ABSTRACTION Provider, Abstract 05/20/2025 Orders Only [facility] Surgery [facility] [address] [facility] [address] [place] [address] Jay Jay Laura MD from Last 3 Months Immunizations Immunization Administration Dates Next Due (ADACEL/BOOSTRIX)(10 YR UP) TDAP VACCINE, 0.5ML, IM 05/23/2011 Influenza Vaccine Split 3+ Yrs PF IM 08/29/2011 Family History Medical History Relation Name Comments Cervical Cancer Maternal Aunt MAT GREAT Ovarian Cancer Maternal Aunt MAT GREAT Uterine Cancer Maternal Aunt MAT GREAT Stomach Cancer Maternal Grandmother Uterine Cancer Mother Uterine Cancer Sister 1 ANDRES Breast Cancer Neg Hx Colon Cancer Neg Hx Relation Name Status Comments Daughter UNKNOWN Alive Maternal Aunt MAT GREAT Maternal Grandmother Mother Sister 1 ANDRES Alive Sister 2 RAVI Alive Social History Tobacco Use Types Packs/Day Years Used Date Smoking Tobacco: Every Day Cigarettes 1.5 41.8 Started: 10/18/1983 Smokeless Tobacco: Never Tobacco Cessation:Ready to Q uit: Not Asked; Counseling Given: Not Answered Comments:As of June 2025, the patient says she is cut back [...] on file Legal Sex Female 10:02 AM LIBERAL ARTS TEACHER Gender Identity Not on file Sexual Orientation Not on file Last Filed Vital Signs Vital Sign Reading Time Taken Comments Blood Pressure 128/78 08/04/2025 3:25 PM LIBERAL ARTS TEACHER Pulse 76 08/04/2025 3:25 PM LIBERAL ARTS TEACHER Temperature 36.2 C (97.1 F) 08/04/2025 3:25 PM LIBERAL ARTS TEACHER Respiratory Rate 20 08/04/2025 3:25 PM LIBERAL ARTS TEACHER Oxygen Saturation 98% 08/04/2025 3:25 PM LIBERAL ARTS TEACHER Inhaled Oxygen Concentration - - Weight 70.3 kg (155 lb) 08/04/2025 3:25 PM LIBERAL ARTS TEACHER Height 162.6 cm (5' 4 ) 08/04/2025 3:25 PM LIBERAL ARTS TEACHER Body Mass Index 26.61 08/04/2025 3:25 PM LIBERAL ARTS TEACHER Plan of Treatment Upcoming Encounters Date Type Department Care Team (Late st Contact Info) Description 08/31/2025 10:30 AM LIBERAL ARTS TEACHER Appointment [facility] [place] [address] [place] [address] Gallo Stauffer MD [address] [place] [address] 08/31/2025 11:15 AM LIBERAL ARTS TEACHER Appointment [facility] CT Scan [place] [address] [place] [address] Gallo Stauffer MD [address] [place] [address] 08/31/2025 12:00 PM LIBERAL ARTS TEACHER Appointment [facility] Respiratory Therapy [facility] [place] [address] [place] [address] Gallo Stauffer MD [address] [place] [address] 11/04/2025 2:20 PM LIBERAL ARTS TEACHER Office Visit [facility] [place] [address] [place] [address] Gallo Stauffer MD [address] [place] [address] Health Maintenance Due Date Last Done Comments HEPATITIS B VACCINES (1 of 3 - 19+ 3-dose series) 1989 Preventative Visit-Managed Medicaid 1989 FIT-DNA Q 3 years 2015 FIT/FOBT Q 1 year 2015 Flex Sig/CT Colonography Q 5 years 2015 Lung Cancer Screening 2020 ZOSTER VACCINE (1 of 2) 2020 DTAP/TDAP/TD VACCINES (2 - T d or Tdap) 05/23/2021 05/23/2011 INFLUENZA VACCINE (#1) 2025 , 07/22/2021, 07/06/2020, Additional history exists BREAST CANCER SCREENING 11/05/2025 11/05/19 25, 07/21/2020, 07/21/2020, Additional history exists Pre-Diabetes and Diabetes Screening 08/04/2028 08/04/2025, 12/12/2022, 12/14/2018 COLORECTAL SCREENING 06/14/2032 06/14/2022 Colorectal Cancer Screening 06/14/2032 Medical Devices Implanted Type Area Wireless Development Manager Device Identifier Shelf Expiration Date Model / Serial / Lot Hip Hip Screw Screw Right: Shoulder Procedures Procedure Name Priority Date/Time Associated Diagnosis Comments URINALYSIS W/REFLEX MICROSCOPIC Routine 08/04/2025 4:35 PM LIBERAL ARTS TEACHER Mesenteric angina Syncope, unspecified syncope type ALLERGY PANEL, FOOD AND TREE NUTS W/COMP Routine 08/04/2025 4:35 PM LIBERAL ARTS TEACHER Epigastric abdominal pain Chronic diarrhea LIPASE Routine 08/04/2025 4:35 PM LIBERAL ARTS TEACHER Idiopathic chronic pancreatitis (CMS/HCC) C-REACTIVE PROTEIN Routine 08/04/2025 4: 35 PM LIBERAL ARTS TEACHER Mesenteric angina Syncope, unspecified syncope type TSH Routine 08/04/2025 4:35 PM LIBERAL ARTS TEACHER Mesenteric angina Syncope, unspecified syncope type HEMOGLOBIN A1C Routine 08/04/2025 4:35 PM LIBERAL ARTS TEACHER Screening for diabetes mellitus COMPREHENSIVE METABOLIC PANEL Routine 08/04/2025 4:35 PM LIBERAL ARTS TEACHER Idiopathic chronic pancreatitis (CMS/HCC) Mesenteric angina Syncope, unspecified syncope type CBC WITH DIFFERENTIAL Routine 08/04/2025 4:35 PM LIBERAL ARTS TEACHER Idiopathic chronic pancreatitis (CMS/HCC) Mesenteric angina Syncope, unspecified syncope type ALPHA-GAL PANEL Routine 08/04/2025 4:35 PM LIBERAL ARTS TEACHER Epigastric abdominal pain Postprandial epigastric pain Chronic diarrhea PROCEDURE PHOTOGRAPHS 06/26/2025 1:57 PM CDT [place] EGD TRANSORAL BIOPSY SINGLE/MULTIPLE 06/26/2025 10:05 AM CDT GERD (gastroesophageal reflux disease) Epigastric pain PATHOLOGY Pathology 06/26/2025 9:43 AM CDT GERD (gastroesophageal reflux disease) Epigastric pain XR CHEST PA AND LATERAL 2 VW Routine 06/10/2025 12:42 PM CDT Dyspnea on exertion MAMMO 3D BRUCE SCREEN BILAT W OR WO CAD Routine 11/05/2024 9:48 AM LIBERAL ARTS TEACHER Breast cancer screening by mammogram from Last 3 Months or Most Recently Relevant to Health Maintenance Results * ALLERGY PANEL, FOOD AND TREE NUTS W/COMP (08/04/2025 4:35 PM LIBERAL ARTS TEACHER) ALLERGEN EGG WHITE <0.10 kU/L [facility]GG WHITE CLASS 0 [facility] ALLERGEN PEANUT <0.10 kU/L [facility] ALLERGEN PEANUT CLASS 0 [facility] WHEAT IGE <0.10 kU/L [facility] ALLERGEN WHEAT CLASS 0 [facility] WALNUT IGE <0.10 kU/L [facility] ALLERGEN WALNUT CLASS 0 [facility] ALLERGEN CODFISH <0.10 kU/L [facility] ALLERGEN CODFISH CLASS 0 [facility] ALLERGEN MILK <0.10 kU/L [facility] ALLERGEN MILK CLASS 0 [facility] SOYBEAN IGE <0.10 kU/L [facility] ALLERGEN SOYBEAN CLASS 0 [facility] SHRIMP IGE <0.10 kU/L [facility] ALLERGEN SHRIMP CLASS 0 [facility] SCALLOP IGE <0.10 kU/L [facility] ALLERGEN SCALLOP CLASS 0 [facility] SESAME SEED IGE <0.10 kU/L [facility] ALLERGEN SESAME SEED CLASS 0 [facility] ALLERGEN HAZELNUT <0.10 kU/L [facility] ALLERGEN HAZELNUT CLASS 0 [facility] ALLERGEN CASHEW NUT <0.10 kU/L [facility] ALLERGEN CASHEW NUT CLASS 0 [facility] ALLERGEN ALMOND <0.10 kU/L [facility] ALLERGEN ALMOND CLASS 0 [facility] SALMON IGE <0.10 kU/L [facility] ALLERGEN SALMON CLASS 0 [facility] TUNA IGE <0.10 kU/L [facility] ALLERGEN TUNA CLASS 0 [facility] ALLERGEN BRAZIL NUT <0.10 kU/L [facility] BRAZIL NUT % RESPONSE (CLASS) 0 [facility] ALLERGEN MACADAMIA <0.10 kU/L [facility] ALLERGEN MACADAMIA CLASS 0 [facility] ALLERGY PANEL INTERP [facility] Comment: Specific Level of Allergen IGE Class kU/L Specific IGE Antibody ----- --------- 0 <0.10 Absent/Undetectable 0/1 0.10-0.34 Very Low Level 1 0.35-0.69 Low Level 2 0.70-3.49 Moderate Level 3 3.50-17.4 High Level 4 17.5-49.9 Very High Level 5 50-100 Very High Level 6 >100 Very High Level The clinical relevance of allergen results of 0.10-0.34 kU/L are undetermined and intended for specialist use. Allergens denoted with a include results using one or more analyte specific reagents. In those cases, the test was developed and its analytical performance characteristics have been determined by [facility]. It has not been cleared or approved by the U.S. Food and Drug Administration. This assay has been validated pursuant to the CLIA regulations and is used for clinical purposes. Test Performed at: [facility] [address] [address] Benito Blanton MD Blood 08/04/2025 4:35 PM LIBERAL ARTS TEACHER 08/06/2025 3:08 AM LIBERAL ARTS TEACHER Gallo Stauffer MD CHEMISTRY ORDERABLES Carey l Result [facility] [phone] [facility] [address] [place] [address] * ALPHA-GAL PANEL (08/04/2025 4:35 PM LIBERAL ARTS TEACHER) ALLERGEN BEEF <0.10 kU/L [facility], ALLERGEN BEEF (F27) CLASS 0 [facility], PRATHER (F88) IGE <0.10 kU/L [facility], ALLERGEN PRATHER (F88) CLASS 0 [facility], ALLERGEN PORK <0.10 kU/L [facility], ALLERGEN PORK (F26) CLASS 0 [facility], GALACTOSE - ALPHA -1, 3 - GALACTOSE, IGE <0.10 <0.10 kU/L [facility], Comment: Results above 0.1 kU/L indicate an allergen-specific IgE sensitization to bwxyxfenr-b-9,3-galactose, and such patients are at risk for delayed allergic reactions following beef, pork, or prather consumption. Circulating IgE antibodies may remain undetectable despite a convincing clinical history because these antibodies may be directed towards allergens revealed or altered during industrial processing, cooking, or digestion and therefore do not exist in the original food for which the patient is tested. Sometimes individuals diagnosed with chronic urticaria may develop IgE antibodies directed against human thyroglobulin. Such antibodies may cross-react with the bovine thyroglobulin used in ImmunoCAP(R) Allergen o215, alpha-Gal, leading to a false-positive test result. A definitive diagnosis should be based on the evaluation of both clinical and laboratory findings and not on any single diagnostic method. Additional information can be found at [email or web address] Test Performed at: [facility], [address] [place] [address] Jewels Obrien MD,PhD,ARACELIS [place] Blood 08/04/2025 4:35 PM LIBERAL ARTS TEACHER 08/06/2025 3:08 AM LIBERAL ARTS TEACHER Gallo Stauffer MD CHEMISTRY ORDERABLES Carey l Result [facility] [phone] [facility] [employer], [address] [place] [address] * (ABNORMAL) CBC WITH DIFFERENTIAL (08/04/2025 4:35 PM LIBERAL ARTS TEACHER) WBC 6.8 3.8 - 10.8 Thousand/u L [facility] RBC 5.32(H) 3.80 - 5.10 Million/uL [facility] HEMOGLOBIN 15.8(H) 11.7 - 15.5 g/dL [facility] HEMATOCRIT 50.4(H) 35.0 - 45.0 % [facility] MCV 94.7 80.0 - 100.0 fL [facility] MCH 29.7 27.0 - 33.0 pg [facility] MCHC 31.3(L) 32.0 - 36.0 g/dL [facility] Comment: For adults, a slight decrease in the calculated MCHC value (in the range of 30 to 32 g/dL) is most likely not clinically significant; however, it should be interpreted with caution in correlation with other red cell parameters and the patient's clinical condition. RDW 13.2 11.0 - 15.0 % [facility] PLATELETS 273 140 - 400 Thousand/u L [facility] MPV 9.8 7.5 - 12.5 fL [facility] NEUTROPHIL ABSOLUTE 3,992 1,500 - 7,800 cells/uL [facility] LYMPHOCYTE ABSOLUTE 2,230 850 - 3,900 cells/uL [facility] MONOCYTE ABSOLUTE 469 200 - 950 cells/uL [facility] EOSINOPHIL ABSOLUTE 82 15 - 500 cells/uL [facility] BASOPHILS ABSOLUTE 27 0 - 200 cells/uL [facility] NEUTROPHIL 58.7 % [facility] LYMPHOCYTES 32.8 % [facility] MONOCYTE 6.9 % [facility] EOSINOPHILS 1.2 % [facility] BASOPHILS 0.4 % [facility] Comment: Test Performed at: [facility] [address] Benito Blanton MD Blood 08/04/2025 4:35 PM LIBERAL ARTS TEACHER 08/06/2025 3:08 AM LIBERAL ARTS TEACHER Gallo Stauffer MD HEMATOLOGY ORDERABLES Fin al Result [facility] [phone] [facility] [address] [place] [phone] * (ABNORMAL) URINALYSIS WITH REFLEX MICROSCOPIC (08/04/2025 4:35 PM LIBERAL ARTS TEACHER) COLOR UA DARK YELLOW YELLOW [facility] [place] CLARITY UA CLEAR CLEAR [facility] [place] SPECIFIC GRAVITY UA 1.023 1.001 - 1.035 [facility] [place] PH UA 6.5 5.0 - 8.0 [facility] [place] GLUCOSE UA NEGATIVE NEGATIVE [facility] [place] BILIRUBIN UA NEGATIVE NEGATIVE [facility] [place] KETONES UA NEGATIVE NEGATIVE [facility] [place] BLOOD UA NEGATIVE NEGATIVE [facility] [place] PROTEIN UA TRACE(A) NEGATIVE [facility] [place] NITRITE UA NEGATIVE NEGATIVE [facility] [place] LEUKOCYTE ESTERASE UA TRACE(A) NEGATIVE [facility] [place] WBC UA 0-5 < OR = 5 /HPF [facility] [place] RBC UA NONE SEEN < OR = 2 /HPF [facility] [place] EPITHELIAL CELLS, URINE 0-5 < OR = 5 /HPF [facility] [place] BACTERIA UA NONE SEEN NONE SEEN /HPF [facility] [place] HYALINE CAST NONE SEEN NONE SEEN /LPF [facility] [place] URINE NOTE [facility] [place] Comment: This urine was analyzed for the presence of WBC, RBC, bacteria, casts, and other formed elements. Only those elements seen were reported. Test Performed at: [facility] [address] [place] [address] Benito Blanton MD Urine URINE SPECIMEN OBTAINED BY CLEAN CATCH PROCEDURE / Unknown 08/04/2025 4:35 PM LIBERAL ARTS TEACHER 08/06/2025 3:27 AM LIBERAL ARTS TEACHER Gallo Stauffer MD URINE ORDERABLES Final Re sult Performing Organization Address City/[facility]/ZIP Co de Phone Number [facility] [phone] [facility] [address] [place] [address] [place] [address] * C-REACTIVE PROTEIN (08/04/2025 4:35 PM LIBERAL ARTS TEACHER) Pathologist [facility] CRP <3.0 <8.0 mg/L [facility] Comment: Test Performed at: [facility] [address] [place] [address] Benito Blanton MD Blood 08/04/2025 4:35 PM LIBERAL ARTS TEACHER 08/06/2025 3:08 AM LIBERAL ARTS TEACHER Gallo Stauffer MD CHEMISTRY ORDERABLES Carey l Result [facility] [phone] [facility] [address] [place] [address] [place] [address] * TSH (08/04/2025 4:35 PM LIBERAL ARTS TEACHER) Pathologist [facility] TSH 0.95 mIU/L [facility] Comment: Reference Range > or = 20 Years 0.40-4.50 Ranges First trimester 0.26-2.66 Second trimester 0.55-2.73 Third trimester 0.43-2.91 Test Performed at: [employer] [address] Benito Blanton MD Blood 08/04/2025 4:35 PM LIBERAL ARTS TEACHER 08/06/2025 3:08 AM LIBERAL ARTS TEACHER Gallo Stauffer MD CHEMISTRY ORDERABLES Carey l Result [facility] [phone] [facility] [employer] [address] * LIPASE (08/04/2025 4:35 PM LIBERAL ARTS TEACHER) LIPASE 34 7 - 60 U/L [facility] Comment: Test Performed at: [email or web address] [address] Benito Blanton MD Blood 08/04/2025 4:35 PM LIBERAL ARTS TEACHER 08/06/2025 3:08 AM LIBERAL ARTS TEACHER Gallo Stauffre MD CHEMISTRY ORDERABLES Carey l Result [facility] [phone] [facility] [employer] [address] * HEMOGLOBIN A1C (08/04/2025 4:35 PM LIBERAL ARTS TEACHER) HEMOGLOBIN A1C 5.4 <5.7 % [facility] Comment: For the purpose of screening for the presence of diabetes: <5.7% Consistent with the absence of diabetes 5.7-6.4% Consistent with increased risk for diabetes (prediabetes) > or =6.5% Consistent with diabetes This assay result is consistent with a decreased risk of diabetes. Currently, no consensus exists regarding use of hemoglobin A1c for diagnosis of diabetes in children. According to [place] Diabetes Association (ADA) guidelines, hemoglobin A1c <7.0% represents optimal control in non- diabetic patients. Different metrics may apply to specific patient populations. Standards of Medical Care in Diabetes(ADA). ESTIMATED AVERAGE GLUCOSE (MG/DL) 108 mg/dL [facility] ESTIMATED AVERAGE GLUCOSE (MMOL/L) 6.0 mmol/L [facility] Comment: Test Performed at: [employer] [address] [place] [address] Benito Blanton MD Blood 08/04/2025 4:35 PM LIBERAL ARTS TEACHER 08/06/2025 3:08 AM LIBERAL ARTS TEACHER Gallo Stauffer MD CHEMISTRY ORDERABLES Carey l Result [facility] [phone] [email or web address] [address] [place] [address] * COMPREHENSIVE METABOLIC PANEL (08/04/2025 4:35 PM LIBERAL ARTS TEACHER) GLUCOSE 91 65 - 99 mg/dL [facility] Comment: Fasting reference interval BUN 14 7 - 25 mg/dL [facility] CREATININE 0.72 0.50 - 1.03 mg/dL [facility] GFR 99 > OR = 60 mL/min/1. 73m2 [facility] BUN/CREAT RATIO SEE NOTE: 6 - 22 (calc) [facility] Comment: Not Reported: BUN and Creatinine are within reference range. SODIUM 136 135 - 146 mmol/L [facility] POTASSIUM 3.7 3.5 - 5.3 mmol/L [facility] CHLORIDE 100 98 - 110 mmol/L [facility] CO2 25 20 - 32 mmol/L [facility] CALCIUM 9.7 8.6 - 10.4 mg/dL [facility] TOTAL PROTEIN 6.8 6.1 - 8.1 g/dL [facility] ALBUMIN 4.5 3.6 - 5.1 g/dL [facility] GLOBULIN 2.3 1.9 - 3.7 g/dL (calc) [facility] ALBUMIN/GLOBULIN RATIO 2.0 1.0 - 2.5 (calc) [facility] BILIRUBIN TOTAL 0.6 0.2 - 1.2 mg/dL [facility] ALKALINE PHOSPHATASE 91 37 - 153 U/L [facility] AST 19 10 - 35 U/L [facility] ALT 8 6 - 29 U/L [facility] Comment: Test Performed at: [facility] [address] Benito Blanton MD Blood 08/04/2025 4:35 PM LIBERAL ARTS TEACHER 08/06/2025 3:08 AM LIBERAL ARTS TEACHER Gallo Stauffer MD CHEMISTRY ORDERABLES Carey l Result [facility] [phone] [facility] [address] * PROCEDURE PHOTOGRAPHS (06/26/2025 1:57 PM CDT) us Provider Scanning PROCEDURE/MINOR SURGICAL ORDER LULU Final Result * PATHOLOGY (06/26/2025 9:43 AM CDT) CASE REPORT Surgical Pathology Report Case: [id number] Authorizing Provider: Jay Jay Laura MD Collected: 06/26/2025 09:43 AM Ordering Location: [facility] Received: 06/26/2025 04:17 PM Operating Room Pathologist: Gen Tovar MD Specimen: Stomach 9:27 AM CDT [facility] ADDENDUM 1 The immunostain for H. pylori on the gastric biopsy is negative. Gen Tovar MD [id number] 9:27 AM CDT [facility] Addendum electronically signed by Gen Tovar MD on 06/30/2025 at 0927 CDT FINAL DIAGNOSIS A. 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 pylori immunostain pending, with results to follow in addendum. Gen Tovar MD [id number] 5 9:27 AM CDT [facility] at 1420 CDT DIAGNOSIS COMMENT After review of the H&E stained slide(s) an immunostain for Helicobacter was done on block A1 due to the clinical concern. The results will follow in an addendum to this report. 5 9:27 AM CDT [facility] GROSS DESCRIPTION A. Received in a container of formalin labeled Sheth -stomach rule out H. pylori is a single fragment of mucosa, 0.3 cm in greatest dimension. The specimen is submitted entirely in A1. Grossed by: Brea Estrella MS, PA ([facility])CM 5 9:27 AM CDT [facility] OPERATIVE PROCEDURE 1: ESOPHAGOGASTRODUODENOSCO PY WITH BIOPSY 5 9:27 AM CDT [facility] CLINICAL INFORMATION K21.9-GERD (gastroesophageal reflux disease) R10.13-Epigastric pain 5 9:27 AM CDT [facility] COMMENT The [employer] voice-activated dictation system may have been used in the creation of this report. Inherent to this system is the possibility of errors in syntax, grammar, punctuation, or other areas that could impact interpretation. If there are interpretive questions about the report, please contact the performing pathologist. Unless gross only is specified in the diagnosis, the microscopic examination substantiates the above cited diagnosis. The performance characteristics of all immunohistochemical stains cited in this report (if any) were determined by the [facility] of [facility] in compliance with CLIA'88 regulations. Some of these tests rely on the use of analyte specific reagents and are subject to specific labeling requirements by the FDA. All controls show appropriate reactivity. This testing was developed by the [facility] of [facility]. It has not been cleared or approved by the FDA. The FDA has determined that such clearance or approval is not necessary. 9:27 AM CDT [facility] [employer] Tissue ENTIRE STOMACH / Unknown Collection / Unknown 06/26/2025 9:43 AM CDT 06/26/2025 4:17 PM CDT Jay Jay Laura MD PATHOLOGY/CYTOLOGY ORDERABLES Ed ited Result - Final [facility] CLIA # [id number] [address] [address] [place] [address] * XR CHEST PA AND LATERAL 2 VW (06/10/2025 12:42 PM CDT) Anatomical Region Laterality Modality Chest Computed Radiogr aphy 06/10/2025 12:4 3 PM CDT Impressions 06/11/2025 7:09 AM CDT Impression: No evidence of infiltrates. Narrative 06/11/2025 7:09 AM CDT Exam: XR CHEST PA AND LATERAL 2 VW Date/Time of Exam: 06/10/2025 12:42 PM Reason For Exam: See Diagnosis Diagnosis: Dyspnea on exertion The heart size is normal. The lungs are clear. The costophrenic angles are sharp. No pneumothorax is seen. Procedure Note Michael Gonzales MD - 06/11/2025 Exam: XR CHEST PA AND LATERAL 2 VW Date/Time of Exam: 06/10/2025 12:42 PM Reason For Exam: See Diagnosis Diagnosis: Dyspnea on exertion The heart size is normal. The lungs are clear. The costophrenic angles are sharp. No pneumothorax is seen. Impression: No evidence of infiltrates. Gallo Stauffer MD DIAGNOSTIC IMAGING ORDERA BLES Final Result * MAMMO 3D BRUCE SCREEN BILAT W OR WO CAD (11/05/2024 9:48 AM LIBERAL ARTS TEACHER) Anatomical Region Laterality Modality Breast Bilateral Mammography, Dig ital Radiography Impressions 11/07/2024 4:00 PM LIBERAL ARTS TEACHER : No mammographic evidence of malignancy. BI-RADS ASSESSMENT: 1 - Negative RECOMMENDATION: Routine annual screening mammography. Narrative 11/07/2024 4:00 PM LIBERAL ARTS TEACHER EXAM: MAMMO SCRN BILAT 3D BRUCE W OR WO CAD INDICATION: Screening COMPARISON: 07/21/2020 MAMMO SCREEN BILAT W OR WO CAD, 08/31/2015 MAMMO SCREEN BILAT W OR WO CAD, 09/13/2011 MAMMO PRIOR STUDY , and 06/30/2010 MAMMO PRIOR STUDY BREAST COMPOSITION: There are scattered areas of fibroglandular density. FINDINGS: RIGHT BREAST: There are no suspicious masses, calcifications, or areas of architectural distortion. LEFT BREAST: There are no suspicious masses, calcifications, or areas of architectural distortion. Gallo Stauffer MD MAMMO ORDERABLES Final Re sult from Last 3 Months or Most Recently Relevant to Health Maintenance Insurance MEDICAID [place] Advance Directives For more information, please contact: [phone] * Full Code (Latest Code Status on File) Date Activated Date Inactivated Comments 06/26/2025 9:08 AM 06/26/2025 12:18 PM * Full Code Date Activated Date Inactivated Comments 06/14/2022 1:42 PM 06/14/2022 5:50 PM * Full Code Date Activated Date Inactivated Comments 04/07/2021 12:34 AM 04/08/2021 1:27 PM Care Teams Tank Truck Loader Relationship Specialty Start Date End Date Gallo Stauffer MD [address] [address] PCP - General Family Practice 03/13/17
--- OUTSIDE RECORDS SUMMARY | 2025-08-20 17:58 | XMS_ITS | Encounter Summary ---
Author Organization [facility] Address [address] [place] [address] Care Team Providers Care Hospital Staff Pharmacist Name Role Phone Gallo Stauffer MD Primary Care Provider [phone] Reason for Visit * Reason Onset Date Comments Medication Refill 08/19/2025 Encounter Details Date Type Department Care Team (Late st Contact Info) Description 08/19/[address] [facility] Medicine [place] [address] [address] WilmerGlory bernardo, [facility] [address] [address] Social History Tobacco Use Types Packs/Day Years [...] on file Legal Sex Female 10:02 AM CERTIFIED RETINAL ANGIOGRAPHER Gender Identity Not on file Sexual Orientation Not on file documented as of this encounter Plan of Treatment Upcoming Encounters Date Type Department Care Team (Late st Contact Info) Description 08/31/2025 10:30 AM CERTIFIED RETINAL ANGIOGRAPHER Appointment [facility] Scan [place] [address] [place] [address] Gallo Stauffer MD [address] [place] [phone] 08/31/2025 11:15 AM CERTIFIED RETINAL ANGIOGRAPHER Appointment [facility] Scan [place] [address] [place] [phone] Gallo Stauffer MD [address] [place] [phone] 08/31/2025 12:00 PM CERTIFIED RETINAL ANGIOGRAPHER Appointment [facility] Respiratory Therapy Services [place] [address] [place] [phone] Gallo Stauffer MD [address] [place] [address] 11/04/2025 2:20 PM CERTIFIED RETINAL ANGIOGRAPHER Office Visit [facility] Family Medicine [place] [address] [place] [address] Gallo Stauffer MD [address] [place] [phone] documented as of this encounter Visit Diagnoses Not on filedocumented in this encounter Care Teams Hospital Staff Pharmacist Relationship Specialty Start Date End Date Gallo Stauffer MD [address] [place] [address] PCP - General Family Practice 03/13/17 documented as of this encounter
[2025-08-20 18:00] VITALS: PULSE 66; RESP 18; TEMP 36.8; O2SAT 99
[2025-08-20 18:04] VITALS: BP 159/93
--- NOTE | 2025-08-20 18:05 | W.ED.CHESTPA ---
HPI - Chest Pain General: Chief Complaint: Chest Pain Stated Complaint: chest pain - nausea Time Seen by Provider: 08/20/25 17:52 History of Present Illness: Patient is 54-year-old female with alcohol use history, presents to the emergency room with central sternal chest pain, nausea, vomiting. This started about noon today. Patient states this has happened on and off for the last year, however not as bad. The nausea and vomiting started just after this. No shortness of breath. She had Zofran 4 mg via EMS, aspirin 324 mg chewed. She continues to have some substernal chest pain, nausea, and vomiting after Zofran. She states her symptoms have waxed and waned. This occurred at rest. No previous cardiac rule out. No known family history. Risk factors: Tobacco abuse, unknown lipid status Associated symptoms: Reports abdominal pain (epigastrum), dyspnea (mild), nausea and vomiting; Deny fever(s) or palpitations Related Data Home Medications ?Medication ?Instructions ?Recorded ?Confirmed buspirone 5 mg tablet 5 mg PO BID 09/03/20 12/14/21 cetirizine 10 mg capsule (Zyrtec) 10 mg PO DAILY 09/03/20 12/14/21 hydrocodone 5 mg-acetaminophen 325 1 tab PO BID PRN 09/03/20 12/14/21 mg tablet (Lorcet (hydrocodone)) albuterol sulfate 2.5 mg/3 mL 2.5 mg inhalation Q6H 12/14/21 12/14/21 (0.083 %) solution for nebulization omeprazole 40 mg capsule,delayed ea PO 12/14/21 12/14/21 release ibuprofen 800 mg tablet 800 mg PO BID 06/07/23 06/07/23 tiotropium bromide 18 mcg capsule 1 cap inhalation DAILY 06/07/23 06/07/23 with inhalation device (Spiriva with HandiHaler) Previous Rx's ?Medication ?Instructions ?Recorded albuterol sulfate 90 mcg/actuation 2 puff inhalation Q6H PRN 06/07/23 aerosol inhaler shortness of breath or wheezing #8.5 grams doxycycline hyclate 100 mg capsule 100 mg PO BID #14 caps 06/07/23 fluconazole 150 mg tablet 150 mg PO Q3D 2 doses #2 tabs 06/07/23 (Diflucan) hydrocodone 5 mg-acetaminophen 325 1 tab PO Q8H PRN pain #14 tabs 05/25/ mg tablet ondansetron 4 mg disintegrating 4 mg PO Q8H PRN nausea and 08/20/25 tablet vomiting 4 days #14 tabs Allergies Allergy/AdvReac Type Severity Reaction Status Date / Time baclofen Allergy Severe gives her Verified 05/04/25 14:04 nightmares levofloxacin (From Levaquin) Allergy Severe Anaphylaxis Verified 05/04/25 14:04 amoxicillin Allergy unknown Verified 05/04/25 14:04 azithromycin (From Zithromax) Allergy unknown Verified 05/04/25 14:04 cephalexin (From Keflex) Allergy unknown Verified 05/04/25 14:04 ciprofloxacin (From Cipro) Allergy unknown Verified 05/04/25 14:04 erythromycin base Allergy unknown Verified 05/04/25 14:04 Penicillins Allergy unknown Verified 05/04/25 14:04 prednisone Allergy ADR-Itching Unverified 05/04/25 14:04 Sulfa (Sulfonamide Allergy unknown Verified 05/04/25 14:04 Antibiotics) Review of Systems General: Reports: 10 or more systems reviewed and unremarkable except in HPI and below Const: Denies: fever(s) or chills ENMT: Denies: throat pain or dry mouth Card: Reports: chest pain; Denies: palpitations, irregular heart rhythm, swelling of feet/ankles or lightheadedness Resp: Reports: dyspnea (mild); Denies: non-productive cough GI: Reports: abdominal pain (epigastrum), nausea and vomiting : Denies: flank pain or difficulty voiding Musc: Denies: neck pain, back pain or extremity pain Skin/Breast: Denies: rash or pruritus Neuro: Denies: headache(s) or numbness in extremities Psych: Denies: anxiety or depression PFSH ED PFSH: Medical History COPD (chronic obstructive pulmonary disease) Depression Generalized anxiety disorder GERD (gastroesophageal reflux disease) Fibromyalgia Alcohol abuse Surgical History Status post hysterectomy Social History Smoking and tobacco/nicotine status: current every day tobacco/nicotine user cigarettes Packs smoked per day: 1.5 Years cigarettes smoked: 37 Quit status (tobacco/nicotine): has tried quititng Number of times tried to quit tobacco: 10 Second hand smoke exposure: No Alcohol intake: current Alcohol intake frequency: 3 or more drinks per day Substance/Drug Use: never Current gender identity: Female Physical Exam Const: COMMON NORMALS: no acute distress, average body habitus and patient oriented x3 HENMT: COMMON NORMALS: normocephalic and atraumatic HEAD & SCALP: normocephalic and atraumatic Neck/C-Spine: COMMON NORMALS: full ROM and no lymphadenopathy Lymph: LYMPHATIC: no lymphadenopathy noted Chest: COMMONS NORMALS: normal inspection of the chest and normal palpation of entire chest wall Resp: COMMON NORMALS: normal respiratory effort, No retractions and clear to auscultation bilaterally AUSCULTATION: clear to auscultation bilaterally Cardio: COMMON NORMALS: regular rate and regular rhythm RATE: regular rate RHYTHM: regular rhythm GI: COMMON NORMALS: Normal to inspection, nondistended, normoactive bowel sounds present, Soft to palpation, non-tender and No hepatosplenomegaly present PALPATION: Yes Soft to palpation and Yes No hepatosplenomegaly present : COMMON NORMALS: Yes no CVA tenderness BLADDER/KIDNEY EXAM: Yes no CVA tenderness Back/Pelvis: COMMON NORMALS: no CVA tenderness Extremity: COMMON NORMALS: normal to inspection, full ROM and capillary refill normal Neuro: COMMON NORMALS: patient oriented x3 Psych: COMMON NORMALS: mental status grossly normal, Normal thought process present and cooperative THOUGHT PROCESS: Normal thought process present Course Reevaluation(s): Reevaluation #1: Improved. Chest pain gone Reevaluation #2: Patient was unable to hold down any of her narcotics today. To avoid any ongoing nausea and vomiting after she leaves, we will give IV push x 1, with Zofran. Vital Signs: Vital signs: Vital Signs Temperature 98.2 F 08/20/25 18:00 Pulse Rate 66 08/20/25 18:00 Respiratory Rate 17 08/20/25 19:39 Blood Pressure 159/93 08/20/25 18:04 Pulse Oximetry 96 08/20/25 19:39 Oxygen Delivery Me thod Room Air 08/20/25 18:00 MDM - Chest Pain Medical Decision Making Patient is a 54-year-old female, last alcohol intake was 4-5 days ago, presents with lower sternal epigastric tenderness, that wraps around the back. Her abdominal exam is benign. Her cardiac rule out has been done. Discussed with patient this does not rule out ischemic disease however it does rule out acute findings. Her presentation was similar to pancreatitis with her history, however this is unfounded. Her nausea and vomiting stopped with Zofran, and repeated with Compazine. Zofran was sent to the pharmacy. Heart score was 2. No additional red flags. EKG is consistent with nonspecific ST segment changes and inverted T waves, however consistent without ST segment elevation. Patient be discharged home, advised baby aspirin, and follow-up with her primary care physician. Patient states understanding. Medical Records I reviewed the patient's medical records. Lab Data I reviewed the patient's lab results. 08/20/25 18:14 08/20/25 18:14 Laboratory Results WBC 5.34 10^3/uL (3.29-11.43) 08/20/25 18:14 RBC 5.00 10^6/uL (3.85-5.65) 08/20/25 18:14 Hgb 14.60 g/dL (11.27-16.99) 08/20/25 18:14 Hct 44.6 % (36-47) 08/20/25 18:14 MCV 89.2 fl (85-98) 08/20/25 18:14 MCH 29.2 pg (27-33) 08/20/25 18:14 MCHC 32.7 g/dL (30-55) 08/20/25 18:14 RDW 13.5 % (12.1-15.1) 08/20/25 18:14 Plt Count 269 10^3/cmm (157-399) 08/20/25 18:14 MPV 8.8 fL (7.4-10.4) 08/20/25 18:14 Neut % (Auto) 74.2 % 08/20/25 18:14 Lymph % (Auto) 19.9 % 08/20/25 18:14 [place] % (Auto) 4.7 % 08/20/25 18:14 Eos % (Auto) 0.2 % 08/20/25 18:14 Baso % (Auto) 0.6 % 08/20/25 18:14 Neut # (Auto) 3.97 10^3/uL (1.8-7.7) 08/20/25 18:14 Lymph # (Auto) 1.1 10^3/uL (0.8-4.8) 08/20/25 18:14 [place] # (Auto) 0.3 10^3/uL (0.2-0.9) 08/20/25 18:14 Eos # (Auto) 0.0 10^3/uL (0.0-0.8) 08/20/25 18:14 Baso # (Auto) 0.0 10^3/uL (0.0-0.1) 08/20/25 18:14 Nucleated RBC % (auto) 0 % 08/20/25 18:14 Nucleated RBCs # 0.0 /100WBC 08/20/25 18:14 Sodium 140 mmol/L (136-145) 08/20/25 18:14 Potassium 4.0 mmol/L (3.5-5.1) 08/20/25 18:14 Chloride 104 mmol/L (98-107) 08/20/25 18:14 Carbon Dioxide 23 mmol/L (22-29) 08/20/25 18:14 Anion Gap 17.0 (5-19) 08/20/25 18:14 BUN 17 mg/dL (6-20) 08/20/25 18:14 Creatinine 0.5 mg/dL (0.5-0.9) 08/20/25 18:14 GFR Calculation 128.6 mL/min (90-130) 08/20/25 18:14 Glucose 147 mg/dL (65-115) H 08/20/25 18:14 Calculated Osmolality 294 mOsm/kg (285-295) 08/20/25 18:14 Calcium 8.8 mg/dL (8.5-10.5) 08/20/25 18:14 Total Bilirubin 0.4 mg/dL (0.15-1.2) 08/20/25 18:14 AST 17 U/L (0-32) 08/20/25 18:14 ALT 7 U/L (0-33) 08/20/25 18:14 Alkaline Phosphatase 103 U/L (35-105) 08/20/25 18:14 Troponin T Baseline < 6 ng/L (0-10) 08/20/25 18:14 NT-Pro-B Natriuret Pep 424 pg/mL (0-125) H 08/20/25 18:14 Total Protein 6.7 g/dL (6.6-8.7) 08/20/25 18:14 Albumin 4.1 g/dL (3.5-5.2) 08/20/25 18:14 Globulin 2.6 g/dL (1.3-4.6) 08/20/25 18:14 Lipase 46 U/L (13-60) 08/20/25 18:14 All radiology interpretation(s) finalized by discharge ED provider radiology interpretation(s): No acute findings EKG Data EKG 1: Interpretation: Normal sinus rhythm with PACs, normal axis, no ST segment elevation Discharge Plan Discharge Patient Disposition: Home Clinical Impression: Atypical chest pain Condition: Stable Prescriptions: New ondansetron 4 mg tablet,disintegrating 4 mg PO Q8H PRN (Reason: nausea and vomiting) 4 Days Qty: 14 0RF No Action buspirone 5 mg tablet 5 mg PO BID hydrocodone-acetaminophen [Lorcet (hydrocodone)] 5-325 mg tablet 1 tab PO BID PRN Zyrtec 10 mg capsule 10 mg PO DAILY albuterol sulfate 2.5 mg /3 mL (0.083 %) solution for nebulization 2.5 mg inhalation Q6H omeprazole 40 mg capsule,delayed release(DR/EC) PO ibuprofen 800 mg tablet 800 mg PO BID tiotropium bromide [Spiriva with HandiHaler] 18 mcg capsule, w/inhalation device 1 cap inhalation DAILY doxycycline hyclate 100 mg capsule 100 mg PO BID Qty: 14 0RF albuterol sulfate 90 mcg/actuation HFA aerosol inhaler 2 puff inhalation Q6H PRN (Reason: shortness of breath or wheezing) Qty: 8.5 0RF fluconazole [Diflucan] 150 mg tablet 150 mg PO Q3D Qty: 2 0RF hydrocodone-acetaminophen 5-325 mg tablet 1 tab PO Q8H PRN (Reason: pain) Qty: 14 0RF Rx Instructions: Take 1/2 to 1 tab every 8 hours as needed for pain Discharge Orders: Discharge ED (Routine); Ordered 08/20/25 Ordered By: Elva Corrales Referrals: Gallo Stauffer [Primary Care Provider, Family Practice] Discharge Diet: Clear Liquid Patient Instructions: Noncardiac Chest Pain (ED), Patient Portal & Debbie Instructions Activity Restrictions/Additional Instructions: - Clear liquid diet only until your symptoms resolve -No additional concern was noted on your workup today. This does not mean you do not have coronary disease, it means there is nothing acute going on today. You need to follow-up with your primary care physician, and discuss if a cardiac evaluation outpatient would be right for you. - At the pharmacy: Brian. Use as directed. If you need more than 1 in 8 hours, obtain liquid Benadryl, use 5-10 mL of the liquid Benadryl every 4-6 hours for nausea. This is an off label use and does help immensely - Feel free to return to the ED if you have further symptoms for any additional reevaluation and workup Thank you for choosing [facility] for your healthcare needs today. You have been screened and evaluated and felt safe for discharge. Health conditions do change or evolve sometimes and as such it is important that you follow up with your Primary Doctor to be re checked, 3-5 days is a general good time frame for follow up. 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
[2025-08-20 18:19] LABS: Hematocrit 44.6 % (36-47); Hemoglobin 14.60 g/dL (11.27-16.99); Mean Corpuscular HGB Conc 32.7 g/dL (30-55); Mean Corpuscular Hemoglobin 29.2 pg (27-33); Mean Corpuscular Volume 89.2 fl (85-98); Nucleated Red Blood Cells % 0 %; Platelet Count 269 10^3/cmm (157-399); Red Blood Count 5.00 10^6/uL (3.85-5.65); White Blood Count 5.34 10^3/uL (3.29-11.43)
[2025-08-20] MEDS: diphenhydrAMINE 50 mg/mL SDV 1mL 25 MG IVP (18:20)
[2025-08-20 18:42] LABS: Troponin(5th) Baseline < 6 ng/L (0-10)
[2025-08-20 18:59] LABS: Alanine Aminotransferase 7 U/L (0-33); Albumin Level 4.1 g/dL (3.5-5.2); Alkaline Phosphatase 103 U/L (35-105); Anion Gap 17.0 (5-19); Aspartate Amino Transferase 17 U/L (0-32); Blood Urea Nitrogen 17 mg/dL (6-20); Calcium 8.8 mg/dL (8.5-10.5); Carbon Dioxide 23 mmol/L (22-29); Chloride 104 mmol/L (98-107); Globulin 2.6 g/dL (1.3-4.6); Glucose 147 mg/dL (65-115); Lipase 46 U/L (13-60); NT Pro B Type Natriuretic Pept 424 pg/mL (0-125); Osmolality Calculated 294 mOsm/kg (285-295); Potassium 4.0 mmol/L (3.5-5.1); Sodium 140 mmol/L (136-145); Total Protein 6.7 g/dL (6.6-8.7)
[2025-08-20 19:39] VITALS: RESP 17; O2SAT 96
[2025-08-20] MEDS: morphine 4 mg/mL SDV 1 mL IVP (19:39)
[2025-08-20] MEDS: ondansetron 2 mg/ML SDV 2 mL 4 MG IVP (19:39)
== END 2025-08-20 20:10 | disposition home or self-care (01) ==
PROVIDERS: Emergency Provider Physician Assistant; PCP Family Medicine
DX: R07.89 Other chest pain (principal); F17.210 Nicotine dependence, cigarettes, uncomplicated; J44.9 Chronic obstructive pulmonary disease, unspecified
CPT/HCPCS: 36415; 80053; 83690; 83880; 84484; 85025; 93005; 96361; 96374; 96375; 99284; J0780; J1200; J2270; J2405; J7120